=== PATIENT | female | born 1965 | race Caucasian/White ===

== ENCOUNTER 2017-08-11 21:26 | Emergency (ER) | payer MEDICAID ==
[2017-08-11 21:33] VITALS: BP 149/81
[2017-08-11] MEDS ORDERED: BUPIVACAINE HCL 0.5 % INJ/PF 30 ML SDV INJ ONE (22:47)
[2017-08-11] MEDS ORDERED: PENICILLIN V POTASSIUM 500 MG TABLET PO ONE (22:47)
--- NOTE | 2017-08-11 22:50 | ER Document Report ---
HPI - HPI Pain Level: 5 Context: Patient is a 52-year-old female presents emergency department complaining of left upper jaw pain. Patient states that she has a history of dental cavities in this back molar. She states she is due to follow-up with her dentist on . She denies any difficulty swallowing, breathing, foul odor or drainage. Tender to touch. Otherwise denies any allergies. - CARDIOVASCULAR Cardiovascular: DENIES: Chest pain Past Medical History - Social History Smoking Status: Current Every Day Smoker Chew tobacco use (# tins/day): No Frequency of alcohol use: Occasional Drug Abuse: None Family History: Reviewed & Not Pertinent Patient has suicidal ideation: No Patient has homicidal ideation: No - Past Medical History Cardiac Medical History: Denies: Hx Congestive Heart Failure, Hx Coronary Artery Disease Pulmonary Medical History: Reports: Hx Bronchitis Renal/ Medical History: Denies: Hx Peritoneal Dialysis Surgical Hx: Negative Vertical Provider Document - CONSTITUTIONAL Notes: PHYSICAL EXAM GENERAL: Alert, interacts well. ENT: Tenderness over tooth 15 without any evidence of abscess. Gingival inflammation. oral mucosa moist, tongue midline. Uvula midline. Airway patent. No evidence of tonsillar enlargement, peritonsillar abscess, retropharyngeal abscess. NECK: Full range of motion. Supple. Trachea midline. LUNGS: Clear to auscultation bilaterally, no wheezes, rales, or rhonchi. No respiratory distress. HEART: Regular rate and rhythm. No murmurs, gallops, or rubs. NEUROLOGICAL: Alert and oriented x4. Normal speech. PSYCH: Normal affect, normal mood. SKIN: Warm, dry, normal turgor. No rashes or lesions noted. - INFECTION CONTROL TRAVEL OUTSIDE OF THE [place] IN LAST 30 DAYS: No - RESPIRATORY O2 Sat by Pulse Oximetry: 99 Course - Re-evaluation Re-evalutation: 08/11/17 22:48 Presentation is most consistent with likely an infected tooth. Airway is patent. Vitals within normal limits. Patient is able swallow without any difficulty. 5 cc Sensorcaine block performed at the bedside. Complete resolution of symptoms. There is no significant facial swelling. Patient will be started on antibiotics. I've instructed to follow-up with dentistry as earliest ability for definitive management. Return precautions and follow-up recommendations have been discussed at length. - Vital Signs Vital signs: Temp Pulse Resp BP Pulse Ox 97.9 F 75 18 149/81 H 99 08/11/17 21:32 08/11/17 21:32 08/11/17 21:32 08/11/17 21:32 08/11/17 21:32 Procedures - Additional Procedures dental block Additional Procedures: Other - Patient received a 5 cc 0.5% Sensorcaine infra alveolar block of the left upper jaw with complete resolution of her pain and no complications Discharge - Discharge Clinical Impression: Toothache Condition: Good Disposition: HOME, SELF-CARE Instructions: Penicillin V K ([facility]), Toothache ([facility]) Additional Instructions: You have been seen for dental pain. It is very important that you follow-up with a dentist for definitive care. Please return if you develop fever greater than 101, swelling in your face, vomiting, difficulty breathing or swallowing, or any other symptoms that are concerning to you. For pain you should take ibuprofen 600 mg every 6 hours as needed. Prescriptions: Penicillin V Potassium [Penicillin Vk 500 mg Tablet] 500 mg PO TID #21 tablet
== END 2017-08-11 23:03 | disposition home or self-care (01) ==
LOC: ER 21:26
DX: K08.89 Other specified disorders of teeth and supporting structures (principal); K05.10 Chronic gingivitis, plaque induced; F17.200 Nicotine dependence, unspecified, uncomplicated
CPT/HCPCS: 99282; 64400; J3490

== ENCOUNTER 2019-03-31 11:03 | Emergency (ER) | payer SELFPAY ==
[2019-03-31] MEDS ORDERED: ASPIRIN 81 MG TABLET, CHEWABLE PO ONE (11:46)
--- NOTE | 2019-03-31 11:48 | ER Document Report ---
ED Medical Screen (RME) - General Chief Complaint: Chest Pain Stated Complaint: CHEST PAIN Time Seen by Provider: 03/31/19 11:45 Mode of Arrival: Ambulatory Information source: Patient Notes: 53-year-old female presented to ED for complaint of chest pain headache intermittently for a week. She states she got up this morning because she just felt bad and her blood pressure was 193/108 at 1015 this morning. She states she had a pulling feeling in her heart. She states she had a [place] in 2006 when she was living in [place] they just told her it was an infection in the heart muscle. She states she does have a stent in her lower abdomen but she does not know which vessel it is in. She has a history of a . She does smoke a pack a day drinks daily but does not use any recreational drugs. 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 Patient is alert oriented respirations regular nonlabored. I have greeted and performed a rapid initial assessment of this patient. A comprehensive ED assessment and evaluation of the patient, analysis of test results and completion of medical decision making process will be conducted by an additional ED providers. Dictation of this chart was performed using voice recognition software; therefore, there may be some unintended grammatical errors. TRAVEL OUTSIDE OF THE [place] IN LAST 30 DAYS: No - Related Data Allergies/Adverse Reactions: No Known Allergies Allergy (Verified 03/31/19 11:05) Past Medical History - Past Medical History Cardiac Medical History: Denies: Hx Congestive Heart Failure, Hx Coronary Artery Disease Pulmonary Medical History: Reports: Hx Bronchitis Renal/ Medical History: Denies: Hx Peritoneal Dialysis - Immunizations History of Influenza Vaccine for 07/2017 - 12/2017 Season: Refused Physical Exam - Vital signs Vitals: Temp Pulse Resp BP Pulse Ox 98.0 F 81 12 140/78 H 97 03/31/19 11:20 03/31/19 11:20 03/31/19 11:20 03/31/19 11:20 03/31/19 11:20 Course - Vital Signs Vital signs: Temp Pulse Resp BP Pulse Ox 98.0 F 81 12 140/78 H 97 03/31/19 11:20 03/31/19 11:20 03/31/19 11:20 03/31/19 11:20 03/31/19 11:20
[2019-03-31 12:32] LABS: ABSOLUTE BASOPHILS # (AUTO) 0.1 10^3/uL (0.0-0.2); ABSOLUTE EOSINOPHILS # (AUTO) 0.2 10^3/uL (0.0-0.6); ABSOLUTE MONOCYTES (AUTO) 0.7 10^3/uL (0.1-1.4); ABSOLUTE NEUT (AUTO) 6.7 10^3/uL (1.7-8.2); BASOPHILS % (AUTO) 0.5 % (0-2); EOSINOPHILS % (AUTO) 1.5 % (0-6); HEMATOCRIT 49.4 % (36.0-47.0); LYMPHOCYTES % (AUTO) 34.2 % (13-45); MEAN CORPUSCULAR HEMOGLOBIN 31.7 pg (27.0-33.4); MEAN CORPUSCULAR HGB CONC 34.4 g/dL (32.0-36.0); MEAN CORPUSCULAR VOLUME 92 fl (80-97); MONOCYTES % (AUTO) 5.9 % (3-13); PLATELET COUNT 279 10^3/uL (150-450); RED BLOOD COUNT 5.37 10^6/uL (3.72-5.28); RED CELL DISTRIBUTION WIDTH 12.7 % (11.5-14.0); SEGMENTED NEUTROPHILS % (AUTO) 57.9 % (42-78); TOTAL CELLS COUNTED % (AUTO) 100 %; WHITE BLOOD COUNT 11.6 10^3/uL (4.0-10.5)
--- NOTE | 2019-03-31 12:33 | RADIOLOGY REPORT (SQ) ---
EXAM DESCRIPTION: CHEST 2 VIEWS COMPLETED DATE/TIME: 03/31/2019 12:24 pm REASON FOR STUDY: Chest pain elevated blood pressure elevated pulse COMPARISON: 07/19/2016 EXAM PARAMETERS: NUMBER OF VIEWS: two views TECHNIQUE: Digital Frontal and Lateral radiographic views of the chest acquired. RADIATION DOSE: NA LIMITATIONS: none FINDINGS: LUNGS AND PLEURA: No opacities, masses or pneumothorax. No pleural effusion. MEDIASTINUM AND HILAR STRUCTURES: No masses or contour abnormalities. HEART AND VASCULAR STRUCTURES: Heart normal size. No evidence for failure. BONES: No acute findings. HARDWARE: None in the chest. OTHER: No other significant finding. IMPRESSION: NO ACUTE RADIOGRAPHIC FINDING IN THE CHEST. TECHNICAL DOCUMENTATION: JOB ID: [id number] [employer]- All Rights Reserved Reading location - IP/workstation name: [email or web address]
[2019-03-31 12:43] LABS: APPEARANCE,URINE SLIGHTLY-CLOUDY; BILIRUBIN,URINE NEGATIVE (NEGATIVE); COLOR,URINE YELLOW; GLUCOSE, URINE NEGATIVE (NEGATIVE); KETONES,URINE NEGATIVE (NEGATIVE); LEUKOCYTE ESTERASE,URINE NEGATIVE (NEGATIVE); NITRITE,URINE NEGATIVE (NEGATIVE); PROTEIN,URINE NEGATIVE (NEGATIVE); URINE SPECIFIC GRAVITY 1.004; UROBILINOGEN,URINE NEGATIVE mg/dL (<2.0)
--- NOTE | 2019-03-31 12:44 | EKG REPORT ---
SEVERITY:- NORMAL ECG - SINUS RHYTHM : Confirmed by: Ace Mckee MD 31-Mar-2019 12:43:42
[2019-03-31 12:52] LABS: ALANINE AMINOTRANSFERASE 32 U/L (9-52); ALBUMIN 4.8 g/dL (3.5-5.0); ALKALINE PHOSPHATASE 91 U/L (38-126); ANION GAP 9 (5-19); ASPARTATE AMINO TRANSFERASE 23 U/L (14-36); BILIRUBIN,DIRECT 0.1 mg/dL (0.0-0.4); BILIRUBIN,TOTAL 0.3 mg/dL (0.2-1.3); BLOOD UREA NITROGEN 12 mg/dL (7-20); CALCIUM 10.4 mg/dL (8.4-10.2); CARBON DIOXIDE 30 mmol/L (22-30); CHLORIDE 102 mmol/L (98-107); GLUCOSE 84 mg/dL (75-110); LIPASE 76.4 U/L (23-300); POTASSIUM 4.7 mmol/L (3.6-5.0); SODIUM 141.4 mmol/L (137-145); TOTAL PROTEIN 8.1 g/dL (6.3-8.2)
--- NOTE | 2019-03-31 15:45 | ER Document Report ---
ED Cardiac - General Chief Complaint: Chest Pain Stated Complaint: CHEST PAIN Time Seen by Provider: 03/31/19 11:45 Mode of Arrival: Ambulatory Notes: 53-year-old female with hypertension and history of a "mild heart attack" in 2006 presents emergency department with chief complaint of chest pain for 1 week. She is also had a headache intermittently. She is been feeling "off" and decided to take her blood pressure this morning and it was 193/108 at about 10 AM. She decided to come to the emergency department for treatment. Upon arrival here her blood pressure was 140/78. She denies any associated dyspnea, diaphoresis, nausea, numbness or weakness in any of her extremities, recent illness, abdominal pain, vomiting or diarrhea, urinary symptoms. She is a smoker and she has a positive family history with her mother having a triple bypass at the age of 46. TRAVEL OUTSIDE OF THE [place] IN LAST 30 DAYS: No - Related Data Allergies/Adverse Reactions: No Known Allergies Allergy (Verified 03/31/19 11:05) Past Medical History - General Information source: Patient - Social History Smoking Status: Current Every Day Smoker Frequency of alcohol use: Heavy Drug Abuse: None Family History: Reviewed & Not Pertinent Patient has suicidal ideation: No Patient has homicidal ideation: No - Past Medical History Cardiac Medical History: Reports: Hx Heart Attack - 2006 Denies: Hx Congestive Heart Failure, Hx Coronary Artery Disease Pulmonary Medical History: Reports: Hx Bronchitis Renal/ Medical History: Denies: Hx Peritoneal Dialysis Past Surgical History: Reports: Hx Cardiac Surgery - stent placed, Hx Section Review of Systems - Review of Systems Constitutional: See HPI EENT: No symptoms reported Cardiovascular: See HPI Respiratory: See HPI Gastrointestinal: See HPI Genitourinary: See HPI Female Genitourinary: No symptoms reported Musculoskeletal: No symptoms reported Skin: No symptoms reported Hematologic/Lymphatic: No symptoms reported Neurological/Psychological: See HPI Physical Exam - Vital signs Vitals: Temp Pulse Resp BP Pulse Ox 98.0 F 81 12 140/78 H 97 03/31/19 11:20 03/31/19 11:20 03/31/19 11:20 03/31/19 11:20 03/31/19 11:20 - Notes Notes: PHYSICAL EXAMINATION: Reviewed vital signs and charting by RN GENERAL: Alert, interacts well. No acute distress. HEAD: Normocephalic, atraumatic. EYES: Pupils equal and round. Extraocular movements intact. ENT: Oral mucosa moist, tongue midline. NECK: Full range of motion. Trachea midline. LUNGS: Clear to auscultation bilaterally, no wheezes, rales, or rhonchi. No resp iratory distress. HEART: Regular rate and rhythm. No murmur ABDOMEN: soft, non-tender. No distention. Bowel sounds present EXTREMITIES: Moves all 4 extremities spontaneously. No edema, No cyanosis. PSYCH: Normal affect, normal mood. SKIN: Warm, dry, normal turgor. No rashes or lesions noted. Course - Re-evaluation Re-evalutation: 03/31/19 14:54 Well-appearing. Patient does have several risk factors and a strong family history. Initial troponin negative. Heart score 4. EKG showed normal sinus rhythm with a heart rate of 78, no evidence of ischemia or STEMI. 03/31/19 17:00 Second troponin was negative. Presentation of chest pain in an otherwise well appearing patient. Low clinical suspicion for ACS given clinical history, exam, EKG without ST elevations or depressions, and negative initial troponin. HEART score less than or equal to 3. PE also seems unlikely given clinical history, absence of tachycardia or dyspnea. Patient is PERC criteria negative. CXR without evidence of pneumothorax or pneumonia. No widened mediastinum. Aortic dissection also seems unlikely given history, symmetric pulses, CXR, and vitals. Had a long discussion with patient and recommended that she be admitted for observation for follow-up stress testing as she does not have insurance or a primary care doctor. She was adamant that she cannot stay in the hospital with this negative work-up because she has a young son at home and has responsibilities. She says she is going to attempt to get Medicaid and get follow-up testing. I explained to her the 30-day risk for major adverse cardiac events was between 12 and 65% but is otherwise reassuring with this negative cardiac work-up she understands all the risks and is of sound mind. At this time she is stable for discharge. 03/31/19 17:01 - Vital Signs Vital signs: Temp Pulse Resp BP Pulse Ox 98.0 F 81 15 113/79 92 03/31/19 11:20 03/31/19 11:20 03/31/19 16:01 03/31/19 16:01 03/31/19 16:01 - Laboratory Result Diagrams: 03/31/19 12:00 03/31/19 12:00 Laboratory results interpreted by me: 03/31/19 03/31/19 12:00 12:00 WBC 11.6 H RBC 5.37 H Hgb 17.0 H Hct 49.4 H Calcium 10.4 H Discharge - Discharge Clinical Impression: Chest pain Qualifiers: Chest pain type: unspecified Qualified Code(s): R07.9 - Chest pain, unspecified Disposition: HOME, SELF-CARE Additional Instructions: You were seen today for chest pain. The exact cause of your pain is unclear. However, based on your cardiac enzyme testing, chest x-ray, and EKG it does not appear that it is from an immediately life-threatening cause at this time. Although your testing here is normal is critical that you follow-up with your primary care physician for continued evaluation of this chest pain and possible stress testing. I recommended you see your physician within the next 24-48 hours to be evaluated for consideration of a stress test. Please return to emergency department immediately if you have worsening of your chest pain, shortness of breath, vomiting, become unable to exert yourself due to pain or difficulty breathing, you pass out, or have any pain that radiates into your arms, jaw, or back. Please also return if you have any additional symptoms that are concerning to you.
[2019-03-31 17:13] VITALS: BP 129/71
== END 2019-03-31 17:21 | disposition home or self-care (01) ==
LOC: ER 11:03
DX: R07.9 Chest pain, unspecified (principal); R51 Headache; F17.200 Nicotine dependence, unspecified, uncomplicated; I25.2 Old myocardial infarction
CPT/HCPCS: 36415; 71046; 80053; 81001; 82553; 83690; 84484; 85025; 93005; 93010; 99285

== ENCOUNTER 2019-04-12 13:02 | Inpatient (IN) | payer SELFPAY ==
[2019-04-12] MEDS ORDERED: IPRATROPIUM/ALBUTEROL 0.5-2.5 MG/3 ML AMPUL NEB ONE (13:15)
[2019-04-12] MEDS ORDERED: METHYLPREDNISOLONE INJ 125 MG/2 ML SDV IV ONE (13:15)
--- NOTE | 2019-04-12 13:17 | ER Document Report ---
ED Medical Screen (RME) - General Chief Complaint: Breathing Difficulty Stated Complaint: TROUBLE BREATHING Time Seen by Provider: 04/12/19 13:14 Mode of Arrival: Wheelchair Information source: Patient Notes: Pt presents c/o diff breathing for past 2 weeks that worsened yesterday. Patient states that 3 days ago she had a fever but none since then. Patient does have a history of COPD and does continue to smoke over a pack a day. Patient states that she has been seen twice recently for this and just finished a steroid taper pack recently. I have greeted and performed a rapid initial assessment of this patient. A comprehensive ED assessment and evaluation of the patient, analysis of test results and completion of the medical decision making process will be conducted by additional ED providers. TRAVEL OUTSIDE OF THE [place] IN LAST 30 DAYS: No - Related Data Allergies/Adverse Reactions: No Known Allergies Allergy (Verified 04/12/19 13:04) Past Medical History - Past Medical History Cardiac Medical History: Reports: Hx Heart Attack - 2006 Denies: Hx Congestive Heart Failure, Hx Coronary Artery Disease Pulmonary Medical History: Reports: Hx Bronchitis Renal/ Medical History: Denies: Hx Peritoneal Dialysis Past Surgical History: Reports: Hx Cardiac Surgery - stent placed, Hx Section - Immunizations History of Influenza Vaccine for 07/2017 - 12/2017 Season: Refused Physical Exam - Vital signs Vitals: Temp Pulse Resp BP Pulse Ox 99.8 F 84 16 148/75 H 92 04/12/19 13:06 04/12/19 13:06 04/12/19 13:06 04/12/19 13:06 04/12/19 13:06 - Respiratory Chest status: Pain with cough Breath sounds: Nonproductive cough, Wheezing Course - Vital Signs Vital signs: Temp Pulse Resp BP Pulse Ox 99.8 F 84 16 148/75 H 92 04/12/19 13:06 04/12/19 13:06 04/12/19 13:06 04/12/19 13:06 04/12/19 13:06
[2019-04-12] MEDS: ALBUTEROL SULFATE 0.083% NEB 2.5 MG/3 ML AMPUL NEB SCH ×2 (13:25→13:58)
[2019-04-12 13:35] LABS: HEMOGLOBIN 16.2 g/dL (12.0-15.5); MEAN CORPUSCULAR HEMOGLOBIN 31.3 pg (27.0-33.4); MEAN CORPUSCULAR HGB CONC 34.4 g/dL (32.0-36.0); MEAN CORPUSCULAR VOLUME 91 fl (80-97); PLATELET COUNT 242 10^3/uL (150-450); RED BLOOD COUNT 5.17 10^6/uL (3.72-5.28); RED CELL DISTRIBUTION WIDTH 12.7 % (11.5-14.0); WHITE BLOOD COUNT 16.9 10^3/uL (4.0-10.5)
[2019-04-12 13:55] LABS: ALANINE AMINOTRANSFERASE 50 U/L (9-52); ALBUMIN 4.1 g/dL (3.5-5.0); ALKALINE PHOSPHATASE 90 U/L (38-126); ANION GAP 8 (5-19); ASPARTATE AMINO TRANSFERASE 39 U/L (14-36); BILIRUBIN,DIRECT 0.1 mg/dL (0.0-0.4); BILIRUBIN,TOTAL 0.3 mg/dL (0.2-1.3); BLOOD UREA NITROGEN 14 mg/dL (7-20); CALCIUM 9.2 mg/dL (8.4-10.2); CARBON DIOXIDE 28 mmol/L (22-30); CHLORIDE 99 mmol/L (98-107); GLUCOSE 89 mg/dL (75-110); POTASSIUM 4.6 mmol/L (3.6-5.0); SODIUM 135.4 mmol/L (137-145); TOTAL PROTEIN 7.2 g/dL (6.3-8.2)
[2019-04-12 13:58] LABS: ABSOLUTE LYMPHOCYTES# (MANUAL) 4.2 10^3/uL (0.5-4.7); ABSOLUTE MONOCYTES # (MANUAL) 2.4 10^3/uL (0.1-1.4); BASOPHILS % (MANUAL) 0 % (0-2); EOSINOPHILS % (MANUAL) 0 % (0-6); LYMPHOCYTES % (MANUAL) 23 % (13-45); MONOCYTES % (MANUAL) 14 % (3-13); SEGMENTED NEUTROPHILS % (MAN) 61 % (42-78); TOTAL CELLS COUNTED 100
[2019-04-12 13:59] LABS: PLATELET COMMENT ADEQUATE; RBC MORPHOLOGY COMMENT NORMO-CYTIC/CHROMIC
--- NOTE | 2019-04-12 14:00 | RADIOLOGY REPORT (SQ) ---
EXAM DESCRIPTION: CHEST 2 VIEWS COMPLETED DATE/TIME: 04/12/2019 1:50 pm REASON FOR STUDY: sob, cough COMPARISON: 03/31/2019 TECHNIQUE: Frontal and lateral radiographic views of the chest acquired. NUMBER OF VIEWS: Two view. LIMITATIONS: None. FINDINGS: LUNGS AND PLEURA: No pneumothorax. Mildly increased interstitial markings -bronchial wall thickening. No consolidation or pleural effusion. MEDIASTINUM AND HILAR STRUCTURES: Stable. HEART AND VASCULAR STRUCTURES: Stable. BONES: No acute findings. HARDWARE: None in the chest. OTHER: No other significant finding. IMPRESSION: Mildly increased interstitial markings -bronchial wall thickening. No consolidation or pleural effusion. TECHNICAL DOCUMENTATION: JOB ID: [id number] 2010 [employer]- All Rights Reserved Reading location - IP/workstation name: [email or web address]
[2019-04-12 15:16] LABS: ARTERIAL BLOOD BASE EXCESS 2.8 mmol/L; ARTERIAL BLOOD FIO2 2.5L; ARTERIAL BLOOD H2CO3 1.13 mmol/L (1.05-1.35); ARTERIAL BLOOD HCO3 26.4 mmol/L (20-24); ARTERIAL BLOOD O2 SATURATION 97.2 % (94-98); ARTERIAL BLOOD PCO2 37.5 mmHg (35-45); ARTERIAL BLOOD PH 7.47 (7.35-7.45); ARTERIAL BLOOD PO2 87.8 mmHg (80-100); ARTERIAL BLOOD TOTAL CO2 27.5 mmol/L (21-25)
[2019-04-12] MEDS ORDERED: ALBUTEROL SULFATE 0.083% NEB 2.5 MG/3 ML AMPUL NEB ONE (15:21)
--- NOTE | 2019-04-12 15:59 | ER Document Report ---
ED General - General Chief Complaint: Breathing Difficulty Stated Complaint: BREATHING DIFFICULTY Time Seen by Provider: 04/12/19 13:14 Primary Care Provider: [facility] [Provider Group] - Follow up in 3-5 days Mode of Arrival: Wheelchair TRAVEL OUTSIDE OF THE [place] IN LAST 30 DAYS: No - HPI Notes: Patient is a 53-year-old female that presents to the emergency department for chief complaint of cough. Patient states that she has had cough congestion and sore throat for the last 5 days. She was seen at an urgent care at onset of symptoms on Thursday and prescribed prednisone. She states she has completed the prednisone and her cough has gotten worse. She did report fever with a T-max of 101.7 on Thursday. She has not had any antipyretic medication today. She denies productive sputum. She states she did not realize she was short of breath until walking into the emergency room. Patient states her sore throat seems to be improving. She does have a history of COPD and has required breathing treatments in the past. She does not currently have any albuterol at home. She is currently smoking and denies change in her tobacco habit since being sick. Patient also uses vaporized marijuana daily. Past Medical History: COPD Past Surgical History: Reviewed in chart Social History: Daily tobacco. Daily vaporized marijuana, frequent near daily alcohol Family History: Reviewed and noncontributory for presenting illness Allergies: Reviewed, see documented allergy list. REVIEW OF SYSTEMS: CONSTITUTIONAL : fever No chills No diaphoresis No recent illness EENT: No vision changes congestion sore throat CARDIOVASCULAR: No chest pain No palpitations RESPIRATORY: shortness of breath cough No difficulty breathing GASTROINTESTINAL: No abdominal pain No nausea No vomiting No diarrhea GENITOURINARY: No dysuria No hematuria No difficulty urinating MUSCULOSKELETAL: No back pain No leg pain No arm pain SKIN: No rashes No lesions LYMPHATIC: No swollen, enlarged glands. NEUROLOGICAL: No lightheadedness No headache No weakness No paresthesias PSYCHIATRIC: No anxiety No depression PHYSICAL EXAMINATION: Vital signs reviewed, nursing noted reviewed. GENERAL: Well-appearing, well-nourished and in no acute distress. HEAD: Atraumatic, normocephalic. EYES: Eyes appear normal, extraocular movements intact, sclera anicteric, conjunctiva are normal. ENT: nares patent, oropharynx clear without exudates. Moist mucous membranes. NECK: Normal range of motion, supple without lymphadenopathy LUNGS: Breath sounds diminished with bilateral end expiratory wheezing to ausc ultation bilaterally and equal. No accessory muscle use. Mild tachypnea HEART: Regular rate and rhythm without murmurs ABDOMEN: Soft, nontender, normoactive bowel sounds. No rebound, guarding, or rigidity. No masses appreciated. EXTREMITIES: Nontender, good range of motion, no pitting or edema. NEUROLOGICAL: No focal neurological deficits. Moves all extremities spontaneously Motor and sensory grossly intact on exam. PSYCH: Normal mood, normal affect. SKIN: Warm, Dry, normal turgor, no rashes or lesions noted on exposed skin - Related Data Allergies/Adverse Reactions: No Known Allergies Allergy (Verified 04/12/19 13:04) Past Medical History - General Information source: Patient - Social History Smoking Status: Current Every Day Smoker Chew tobacco use (# tins/day): No Frequency of alcohol use: Heavy Drug Abuse: Marijuana Family History: Reviewed & Not Pertinent Patient has suicidal ideation: No Patient has homicidal ideation: No - Past Medical History Cardiac Medical History: Reports: Hx Heart Attack - 2006, Hx Hypertension Denies: Hx Congestive Heart Failure, Hx Coronary Artery Disease Pulmonary Medical History: Reports: Hx Bronchitis, Hx COPD Renal/ Medical History: Denies: Hx Peritoneal Dialysis Past Surgical History: Reports: Hx Cardiac Surgery - stent placed, Hx Section Physical Exam - Vital signs Vitals: Temp Pulse Resp BP Pulse Ox 99.8 F 84 16 148/75 H 92 04/12/19 13:06 04/12/19 13:06 04/12/19 13:06 04/12/19 13:06 04/12/19 13:06 Course - Re-evaluation Re-evalutation: 04/12/19 15:57 Vitals reviewed. Nursing notes reviewed. Patient does have a leukocytosis but has been on high-dose steroids for the last few days. Her x-ray shows no focal pneumonia. She does have interstitial lung markings likely suggestive of a viral process and acute bronchitis. Patient does have wheezing and feels much better after receiving DuoNeb and albuterol. Her O2 was borderline at 92% on room air when she presented to today. Her ABG shows no hypercapnic respiratory failure or hypoxemia. Patient will be ambulated in the emergency room on room air. If she is able to maintain her oxygen saturation she will be discharged home with a prolonged dose of steroids and albuterol inhaler. Chest X-Ray 04/12/19 13:15 IMPRESSION: Mildly increased interstitial markings -bronchial wall thickening. No consolidation or pleural effusion. Laboratory 04/12/19 04/12/19 04/12/19 13:21 13:21 13:21 WBC 16.9 H RBC 5.17 Hgb 16.2 H Hct 47.0 MCV 91 MCH 31.3 MCHC 34.4 RDW 12.7 Plt Count 242 Total Counted 100 Seg Neutrophils % Not Reportable Seg Neuts % (Manual) 61 Lymphocytes % Not Reportable Lymphocytes % (Manual) 23 Atypical Lymphs % 2 Monocytes % Not Reportable Monocytes % (Manual) 14 H Eosinophils % Not Reportable Eosinophils % (Manual) 0 Basophils % Not Reportable Basophils % (Manual) 0 Absolute Neutrophils Not Reportable Abs Neuts (Manual) 10.3 H Absolute Lymphocytes Not Reportable Abs Lymphs (Manual) 4.2 Absolute Monocytes Not Reportable Abs Monocytes (Manual) 2.4 H Absolute Eosinophils Not Reportable Absolute Eos (Manual) 0.0 Absolute Basophils Not Reportable Abs Basophils (Manual) 0.0 Platelet Comment ADEQUATE RBC Morph Comment NORMO-CYTIC/CHROMIC Carbonic Acid HCO3/H2CO3 Ratio ABG pH ABG pCO2 ABG pO2 ABG HCO3 ABG Total CO2 ABG O2 Saturation ABG Base Excess FiO2 Sodium 135.4 L Potassium 4.6 Chloride 99 Carbon Dioxide 28 Anion Gap 8 BUN 14 Creatinine 0.65 Est GFR ( Amer) > 60 Est GFR (Non-Af Amer) > 60 Glucose 89 Calcium 9.2 Total Bilirubin 0.3 Direct Bilirubin 0.1 Neonat Total Bilirubin Not Reportable Neonat Direct Bilirubin Not Reportable Neonat Indirect Bili Not Reportable AST 39 H ALT 50 Alkaline Phosphatase 90 Troponin I < 0.012 Total Protein 7.2 Albumin 4.1 04/12/19 15:00 WBC RBC Hgb Hct MCV MCH MCHC RDW Plt Count Total Counted Seg Neutrophils % Seg Neuts % (Manual) Lymphocytes % Lymphocytes % (Manual) Atypical Lymphs % Monocytes % Monocytes % (Manual) Eosinophils % Eosinophils % (Manual) Basophils % Basophils % (Manual) Absolute Neutrophils Abs Neuts (Manual) Absolute Lymphocytes Abs Lymphs (Manual) Absolute Monocytes Abs Monocytes (Manual) Absolute Eosinophils Absolute Eos (Manual) Absolute Basophils Abs Basophils (Manual) Platelet Comment RBC Morph Comment Carbonic Acid 1.13 HCO3/H2CO3 Ratio 23:1 ABG pH 7.47 H ABG pCO2 37.5 ABG pO2 87.8 ABG HCO3 26.4 H ABG Total CO2 27.5 H ABG O2 Saturation 97.2 ABG Base Excess 2.8 FiO2 2.5L Sodium Potassium Chloride Carbon Dioxide Anion Gap BUN Creatinine Est GFR ( Amer) Est GFR (Non-Af Amer) Glucose Calcium Total Bilirubin Direct Bilirubin Neonat Total Bilirubin Neonat Direct Bilirubin Neonat Indirect Bili AST ALT Alkaline Phosphatase Troponin I Total Protein Albumin 04/12/19 16:40 Patient did not do well with ambulation in the emergency room. Her O2 went to 86% on room air and she became conversationally dyspneic. When she sat back in bed she stayed around 90% and was placed back on 2 L nasal cannula oxygen. At this point she is requiring oxygen and does not have O2 at home. Patient will be admitted to the hospital for continued treatment of her bronchitis and hypoxia. Care discussed with Dr. Romo who accepts admission - Vital Signs Vital signs: Temp Pulse Resp BP Pulse Ox 99.1 F 84 13 142/66 H 97 04/12/19 16:16 04/12/19 13:06 04/12/19 14:47 04/12/19 14:48 04/12/19 14:48 - Laboratory Result Diagrams: 04/12/19 13:21 04/12/19 13:21 Laboratory results interpreted by me: 04/12/19 04/12/19 04/12/19 13:21 13:21 15:00 WBC 16.9 H Hgb 16.2 H Monocytes % (Manual) 14 H Abs Neuts (Manual) 10.3 H Abs Monocytes (Manual) 2.4 H ABG pH 7.47 H ABG HCO3 26.4 H ABG Total CO2 27.5 H Sodium 135.4 L AST 39 H - EKG Interpretation by Me Additional EKG results interpreted by me: 04/12/19 16:03 Interpreted by myself 1451: Normal sinus rhythm, rate 75, normal axis, no ectopy, no STEMI Discharge - Discharge Clinical Impression: Bronchitis, Wheezing, Hypoxia Condition: Stable Disposition: ADMITTED INPATIENT Admitting Provider: Demetrius (Hospitalist) Unit Admitted: Telemetry Additional Instructions: Please return to the emergency department if you have any worsening, or concern of your symptoms. Please return to the emergency department if you develop chest pain, difficulty breathing, severe abdominal pain, or ongoing vomiting. Please follow-up with your primary care physician in 2-3 days and any other recommended physicians. If prescribed, take all medications as directed. If you have any questions or concerns do not hesitate to return the emergency department for evaluation. Use the albuterol inhaler 2 puffs every 4 hours as needed for cough and wheezing Stop using vaporized marijuana and tobacco Prescriptions: Albuterol Sulfate [Proair HFA Inhalation Aerosol 8.5 gm MDI] 2 puff IH Q4H PRN #1 mdi PRN Reason: Inhaler, Assist Devices [Space Chamber Plus] 1 each MC Q4 #1 spacer Methylprednisolone [Medrol Dosepack (4 mg/Tab) 21 Tab/Dosepak] 4 mg PO ASDIR PRN #21 tab.ds.pk PRN Reason:
[2019-04-12] MEDS ORDERED: LEVALBUTEROL HCL NEB 0.63 MG/3 ML AMPUL NEB PRN (17:30)
[2019-04-12] MEDS ORDERED: ACETAMINOPHEN 650 MG SUPP.RECT PR PRN (17:30)
[2019-04-12] MEDS ORDERED: ONDANSETRON HCL INJ/PF 4 MG/2 ML SDV IV PRN (17:30)
--- NOTE | 2019-04-12 18:11 | PDOC H&P ---
History of Present Illness Admission Date/PCP: 04/12/19 16:45 Patient complains of: shortness of breath for 2 weeks History of Present Illness: SAM SANCHEZ is a 53 year old female asthma,copd,htn came to the er with c/o not feeling well for 2 weeks. from this morning started having chest pains,cough with yellowish sputum associated with fever,chills,nausea and decided to come to ER in the ER pulse ox is 80 percent and cxr neg for pneumonia and medical consult was called for admission Past Medical History Cardiac Medical History: Reports: Myocardial Infarction - 2006, Hypertension Denies: Congestive Heart Failure, Coronary Artery Disease Pulmonary Medical History: Reports: Bronchitis, Chronic Obstructive Pulmonary Disease (COPD) Past Surgical History Past Surgical History: Reports: Section Social History Smoking Status: Current Every Day Smoker Frequency of Alcohol Use: Heavy Hx Recreational Drug Use: No Hx Prescription Drug Abuse: No - Advance Directive Resuscitation Status: Full Code Family History Family History: Reviewed & Not Pertinent Parental Family History Reviewed: Yes - mother with heart attack and f ather copd Children Family History Reviewed: Yes Sibling(s) Family History Reviewed.: Yes Medication/Allergy Home Medications: Albuterol Sulfate [Ventolin Hfa] 18 gm IH Q4HP PRN #1 hfa.aer.ad 07/19/16 Penicillin V Potassium [Penicillin Vk 500 mg Tablet] 500 mg PO TID #21 tablet 08/11/17 Albuterol Sulfate [Proair HFA Inhalation Aerosol 8.5 gm MDI] 2 puff IH Q4H PRN #1 mdi 04/12/19 Inhaler, Assist Devices [Space Chamber Plus] 1 each MC Q4 #1 spacer 04/12/19 Methylprednisolone [Medrol Dosepack (4 mg/Tab) 21 Tab/Dosepak] 4 mg PO ASDIR PRN #21 tab.ds.pk 04/12/19 Allergies/Adverse Reactions: No Known Allergies Allergy (Verified 04/12/19 13:04) Review of Systems Constitutional: PRESENT: chills, fatigue, fever(s), headache(s), weakness Eyes: ABSENT: visual disturbances Ears: ABSENT: hearing changes Nose, Mouth, and Throat: ABSENT: sore throat Respiratory: PRESENT: cough, dyspnea Gastrointestinal: PRESENT: nausea Integumentary: ABSENT: rash, wounds Neurological: ABSENT: abnormal gait, abnormal speech, confusion, dizziness, focal weakness, syncope Psychiatric: ABSENT: anxiety, depression, homidical ideation, suicidal ideation Physical Exam Vital Signs: Temp Pulse Resp BP Pulse Ox 99.1 F 84 13 142/66 H 97 04/12/19 16:16 04/12/19 13:06 04/12/19 14:47 04/12/19 14:48 04/12/19 14:48 Intake & Output 04/11/19 04/12/19 04/13/19 06:59 06:59 06:59 Weight 72.5 kg General appearance: PRESENT: mild distress, well-developed Head exam: PRESENT: atraumatic Eye exam: PRESENT: PERRLA Ear exam: PRESENT: normal external ear exam Mouth exam: PRESENT: moist, tongue midline Neck exam: ABSENT: carotid bruit, JVD, lymphadenopathy, thyromegaly Respiratory exam: PRESENT: decreased breath sounds Cardiovascular exam: PRESENT: tachycardia GI/Abdominal exam: PRESENT: normal bowel sounds, soft. ABSENT: distended, guarding, mass, organolmegaly, rebound, tenderness Rectal exam: PRESENT: deferred Neurological exam: PRESENT: alert, awake, oriented to person, oriented to place, oriented to time, oriented to situation, CN II-XII grossly intact. ABSENT: m otor sensory deficit Psychiatric exam: PRESENT: appropriate affect, normal mood. ABSENT: homicidal ideation, suicidal ideation Results Laboratory Results: 04/12/19 13:21 04/12/19 13:21 04/12/19 04/12/19 04/12/19 13:21 13:21 15:00 WBC 16.9 H RBC 5.17 Hgb 16.2 H Hct 47.0 MCV 91 MCH 31.3 MCHC 34.4 RDW 12.7 Plt Count 242 Seg Neutrophils % Not Reportable Lymphocytes % Not Reportable Monocytes % Not Reportable Eosinophils % Not Reportable Basophils % Not Reportable Absolute Neutrophils Not Reportable Absolute Lymphocytes Not Reportable Absolute Monocytes Not Reportable Absolute Eosinophils Not Reportable Absolute Basophils Not Reportable Carbonic Acid 1.13 HCO3/H2CO3 Ratio 23:1 ABG pH 7.47 H ABG pCO2 37.5 ABG pO2 87.8 ABG HCO3 26.4 H ABG O2 Saturation 97.2 ABG Base Excess 2.8 FiO2 2.5L Sodium 135.4 L Potassium 4.6 Chloride 99 Carbon Dioxide 28 Anion Gap 8 BUN 14 Creatinine 0.65 Est GFR ( Amer) > 60 Est GFR (Non-Af Amer) > 60 Glucose 89 Calcium 9.2 Total Bilirubin 0.3 AST 39 H ALT 50 Alkaline Phosphatase 90 Total Protein 7.2 Albumin 4.1 04/12/19 13:21 Troponin I < 0.012 Impressions: Chest X-Ray 04/12/19 13:15 IMPRESSION: Mildly increased interstitial markings -bronchial wall thickening. No consolidation or pleural effusion. Assessment and Plan - Diagnosis (1) Hypoxia Is this a current diagnosis for this admission?: Yes Plan: 04/12/2019-pt is going to be admitted in [facility]-to start on azithromycin and rocephin,oxygen 2lts via nasal canula,gi and DVT prophylaxis. order placed for CTA of the chest.blood cultures and sputum cultures requested.hypoxia most likely sec to asthma exacerbation. (2) Asthma exacerbation Is this a current diagnosis for this admission?: Yes Plan: 04/12/2019-pt has h/o asthma exacerbation... started on iv solumedrol 40 mg q 12hrs, oxygen 2lts ia nasal canula.started on xopenex neds q6h/prn (3) Bronchitis Is this a current diagnosis for this admission?: Yes Plan: started on azthromycin and rocephin , sputum and blood cultures are requested (4) Tobacco abuse Is this a current diagnosis for this admission?: No Plan: pt has h/o current day smoking.. smoking counselling provided for more than 10 min. order was placed for nicotine patch (5) HTN (hypertension) Is this a current diagnosis for this admission?: No Plan: 04/12/2019-h/o essential hypertension-bp know is 131/71 stable. plan to check BP q shift. - Time Time Spent with patient: 25-34 minutes Smoking Cessation Education: over 10 minutes Medications reviewed and adjusted accordingly: Yes Anticipated discharge: Home
--- NOTE | 2019-04-12 18:55 | RADIOLOGY REPORT (SQ) ---
EXAM DESCRIPTION: CTA CHEST COMPLETED DATE/TIME: 04/12/2019 6:27 pm REASON FOR STUDY: pulm embolism COMPARISON: None. TECHNIQUE: CT scan of the chest performed using helical scanning technique with dynamic intravenous contrast injection. Images reviewed with lung, soft tissue and bone windows. Reconstructed coronal and sagittal MPR images reviewed. Additional 3 dimensional post-processing performed to develop Maximal Intensity Projection images (OR P). All images stored on PACS. All CT scanners at this facility use dose modulation, iterative reconstruction, and/or weight based d osing when appropriate to reduce radiation dose to as low as reasonably achievable (ALARA). [facility]: Dose Right [facility]: CareDose [facility]: Dose Right [facility]: Teradose 4D [facility]: SleepOut CONTRAST TYPE AND DOSE: contrast/concentration: Isovue 350.00 mg/ml; Total Contrast Delivered: 70.0 ml; Total Saline Delivered: 80.0 ml Contrast bolus adequate for pulmonary arteries and aorta. RENAL FUNCTION: BUN 14 creatinine 0.65 RADIATION DOSE: CT Rad equipment meets quality standard of care and radiation dose reduction techniq ues were employed. CTDIvol: 14.4 - 33.1 mGy. DLP: 578 mGy-cm. . LIMITATIONS: None. FINDINGS: LUNGS AND PLEURA: Mild centrilobular emphysematous changes. No focal infiltrate or effusi on. No mass. AORTA AND GREAT VESSELS: No aneurysm. Contrast bolus not optimized for the aorta. HEART: No pericardial effusion. No significant coronary artery calcifications. PULMONARY ARTERIES: No emboli visualized in the main pulmonary arteries or the segmental branches. HILAR AND MEDIASTINAL STRUCTURES: No identified masses or abnormal nodes. HARDWARE: None in the chest. UPPER ABDOMEN: No significant findings. Limited exam. THYROID AND OTHER SOFT TISSUES: No masses. No adenopathy. BONES: No acute or significant finding. 3D MIPS: Confirm above findings. OTHER: No other significant finding. IMPRESSION: There is no evidence of pulmonary emboli. There is no aortic aneurysm or dissection. T here is mild centrilobular pulmonary emphysema. COMMENT: Quality ID # [id number]: Final reports with documentation of one or more dose reduction techniques (e.g., Automated exposure control, adjustment of the mA and/or kV according to patient size, use of iterative reconstruction technique) TECHNICAL DOCUMENTATION: JOB ID: [id number]- All Rights Reserved Reading location - IP/workstation name: [email or web address]
[2019-04-12] MEDS: NICOTINE 21 MG/24 HR PATCH.TD24 TD SCH (18:57)
[2019-04-12] MEDS: LISINOPRIL 10 MG TABLET PO SCH (18:58)
[2019-04-12] MEDS: NORMAL SALINE 1000 ML 1,000 ML IV PRN (19:09)
[2019-04-12 20:19] LABS: CREATINE KINASE MB 0.54 ng/mL (<4.55)
[2019-04-12 20:20] LABS: TROPONIN I < 0.012 ng/mL
--- NOTE | 2019-04-12 20:28 | EKG REPORT ---
SEVERITY:- NORMAL ECG - SINUS RHYTHM : Confirmed by: Bret Ledesma 12-Apr-2019 20:27:07
[2019-04-12] MEDS: FAMOTIDINE 20 MG TABLET PO SCH (21:11)
[2019-04-12] MEDS: METHYLPREDNISOLONE INJ 40 MG/1 ML SDV IV SCH (21:11)
[2019-04-13 02:13] LABS: CREATINE KINASE MB 1.05 ng/mL (<4.55)
[2019-04-13 02:17] LABS: TROPONIN I < 0.012 ng/mL
[2019-04-13] MEDS ORDERED: PANTOPRAZOLE SODIUM 40 MG TABLET.DR PO SCH (06:00)
[2019-04-13] MEDS: GUAIFENESIN SYRP 200 MG/10 ML UDC PO PRN (06:42)
[2019-04-13 08:14] LABS: ABSOLUTE LYMPHOCYTES (AUTO) 3.4 10^3/uL (0.5-4.7); ABSOLUTE MONOCYTES (AUTO) 1.3 10^3/uL (0.1-1.4); ABSOLUTE NEUT (AUTO) 10.3 10^3/uL (1.7-8.2); BASOPHILS % (AUTO) 0.1 % (0-2); HEMATOCRIT 42.6 % (36.0-47.0); HEMOGLOBIN 14.7 g/dL (12.0-15.5); LYMPHOCYTES % (AUTO) 22.4 % (13-45); MEAN CORPUSCULAR HEMOGLOBIN 31.7 pg (27.0-33.4); MEAN CORPUSCULAR HGB CONC 34.5 g/dL (32.0-36.0); MEAN CORPUSCULAR VOLUME 92 fl (80-97); MONOCYTES % (AUTO) 8.8 % (3-13); PLATELET COUNT 225 10^3/uL (150-450); RED BLOOD COUNT 4.65 10^6/uL (3.72-5.28); RED CELL DISTRIBUTION WIDTH 12.4 % (11.5-14.0); SEGMENTED NEUTROPHILS % (AUTO) 68.7 % (42-78); TOTAL CELLS COUNTED % (AUTO) 100 %
[2019-04-13] MEDS: IPRATROPIUM/ALBUTEROL 0.5-2.5 MG/3 ML AMPUL NEB PRN (08:20)
[2019-04-13 08:33] LABS: ALANINE AMINOTRANSFERASE 47 U/L (9-52); ALBUMIN 3.7 g/dL (3.5-5.0); ALKALINE PHOSPHATASE 73 U/L (38-126); ANION GAP 9 (5-19); ASPARTATE AMINO TRANSFERASE 36 U/L (14-36); BILIRUBIN,DIRECT 0.2 mg/dL (0.0-0.4); BILIRUBIN,TOTAL 0.3 mg/dL (0.2-1.3); BLOOD UREA NITROGEN 13 mg/dL (7-20); CALCIUM 8.9 mg/dL (8.4-10.2); CARBON DIOXIDE 26 mmol/L (22-30); CHLORIDE 104 mmol/L (98-107); CREATINE KINASE 601 U/L (30-135); GLUCOSE 92 mg/dL (75-110); POTASSIUM 4.7 mmol/L (3.6-5.0); SODIUM 138.8 mmol/L (137-145); TOTAL PROTEIN 6.5 g/dL (6.3-8.2); TRIGLYCERIDES 107 mg/dL (<150)
[2019-04-13 08:46] LABS: DIRECT LDL 126 mg/dL (<100)
[2019-04-13 08:51] LABS: CREATINE KINASE MB 1.82 ng/mL (<4.55)
[2019-04-13 08:55] LABS: TROPONIN I < 0.012 ng/mL
[2019-04-13] MEDS: NICOTINE 21 MG/24 HR PATCH.TD24 TD SCH (09:16)
[2019-04-13] MEDS: ENOXAPARIN SODIUM INJ 40 MG/0.4 ML DISP.SYRIN SUBCUT SCH (09:16)
[2019-04-13] MEDS: FAMOTIDINE 20 MG TABLET PO SCH ×2 (09:16→21:50)
[2019-04-13] MEDS: CEFTRIAXONE 2 GM/D5W RTU 2 GM/50 ML RTUPB IV SCH (09:16)
[2019-04-13] MEDS: LISINOPRIL 10 MG TABLET PO SCH (09:16)
[2019-04-13] MEDS: METHYLPREDNISOLONE INJ 40 MG/1 ML SDV IV SCH ×2 (09:17→21:50)
[2019-04-13] MEDS: ACETAMINOPHEN 325 MG TABLET PO PRN ×2 (09:55→17:57)
[2019-04-13] MEDS: NORMAL SALINE 1000 ML 1,000 ML IV PRN ×2 (09:56→23:45)
[2019-04-13] MEDS ORDERED: (PENDING PHARMACY ID) (Cyanocobalamin (Vitamin B-12) [Vitamin B12] 2,500 MCG) PO SCH (10:00)
[2019-04-13] MEDS ORDERED: AZITHROMYCIN INJ 500 MG VIAL IV SCH (10:00)
[2019-04-13] MEDS ORDERED: (PENDING PHARMACY ID) (Omega-3 Fatty Acids/Fish Oil [Fish Oil 1,000 Mg Capsule] 1 EACH) PO SCH (10:00)
--- NOTE | 2019-04-13 10:03 | PDOC PROGRESS REPORT ---
Subjective Progress Note for:: 04/13/19 Subjective:: 53 year old female asthma,copd,htn came to the er with c/o not feeling well for 2 weeks. from this morning started having chest pains,cough with yellowish sputum assoc iated with fever,chills,nausea and decided to come to ER in the ER pulse ox is 80 percent and cxr neg for pneumonia and medical consult was called for admission 04/13/[id number]-rqrh-old female came with asthma exacerbation associated with bronchitis became hypoxic in the emergency room. No acute events in the last 24 hours. Still complaining of cough and congestion. Requesting Mucomyst. Pulse ox is 95% on 2 L. Reason For Visit: ASTHMA EXACERBATION Physical Exam Vital Signs: Temp Pulse Resp BP Pulse Ox 98.0 F 64 18 147/67 H 95 04/13/19 08:01 04/13/19 08:22 04/13/19 08:22 04/13/19 08:01 04/13/19 08:22 Intake & Output 04/12/19 04/13/19 04/14/19 06:59 06:59 06:59 Intake Total 750 1050 Balance 750 1050 Weight 69.6 kg General appearance: PRESENT: no acute distress Head exam: PRESENT: atraumatic Eye exam: PRESENT: PERRLA Mouth exam: PRESENT: moist, tongue midline Neck exam: ABSENT: carotid bruit, JVD, lymphadenopathy, thyromegaly Respiratory exam: PRESENT: decreased breath sounds Cardiovascular exam: PRESENT: RRR. ABSENT: diastolic murmur, rubs, systolic murmur GI/Abdominal exam: PRESENT: normal bowel sounds, soft. ABSENT: distended, guarding, mass, organolmegaly, rebound, tenderness Rectal exam: PRESENT: deferred Extremities exam: PRESENT: full ROM. ABSENT: calf tenderness, clubbing, pedal e alberto Neurological exam: PRESENT: alert, awake, oriented to person, oriented to place, oriented to time, oriented to situation, CN II-XII grossly intact. ABSENT: motor sensory deficit Psychiatric exam: PRESENT: appropriate affect, normal mood. ABSENT: homicidal ideation, suicidal ideation Results Laboratory Results: 04/13/19 07:39 04/13/19 07:39 04/12/19 04/12/19 04/12/19 13:21 13:21 15:00 WBC 16.9 H RBC 5.17 Hgb 16.2 H Hct 47.0 MCV 91 MCH 31.3 MCHC 34.4 RDW 12.7 Plt Count 242 Seg Neutrophils % Not Reportable Lymphocytes % Not Reportable Monocytes % Not Reportable Eosinophils % Not Reportable Basophils % Not Reportable Absolute Neutrophils Not Reportable Absolute Lymphocytes Not Reportable Absolute Monocytes Not Reportable Absolute Eosinophils Not Reportable Absolute Basophils Not Reportable Carbonic Acid 1.13 HCO3/H2CO3 Ratio 23:1 ABG pH 7.47 H ABG pCO2 37.5 ABG pO2 87.8 ABG HCO3 26.4 H ABG O2 Saturation 97.2 ABG Base Excess 2.8 FiO2 2.5L Sodium 135.4 L Potassium 4.6 Chloride 99 Carbon Dioxide 28 Anion Gap 8 BUN 14 Creatinine 0.65 Est GFR ( Amer) > 60 Est GFR (Non-Af Amer) > 60 Glucose 89 Calcium 9.2 Magnesium Total Bilirubin 0.3 AST 39 H ALT 50 Alkaline Phosphatase 90 Total Protein 7.2 Albumin 4.1 Triglycerides Cholesterol LDL Cholesterol Direct VLDL Cholesterol HDL Cholesterol TSH 04/13/19 04/13/19 04/13/19 07:39 07:39 07:39 WBC 15.0 H RBC 4.65 Hgb 14.7 Hct 42.6 MCV 92 MCH 31.7 MCHC 34.5 RDW 12.4 Plt Count 225 Seg Neutrophils % 68.7 Lymphocytes % 22.4 Monocytes % 8.8 Eosinophils % 0.0 Basophils % 0.1 Absolute Neutrophils 10.3 H Absolute Lymphocytes 3.4 Absolute Monocytes 1.3 Absolute Eosinophils 0.0 Absolute Basophils 0.0 Carbonic Acid HCO3/H2CO3 Ratio ABG pH ABG pCO2 ABG pO2 ABG HCO3 ABG O2 Saturation ABG Base Excess FiO2 Sodium 138.8 Potassium 4.7 Chloride 104 Carbon Dioxide 26 Anion Gap 9 BUN 13 Creatinine 0.54 Est GFR ( Amer) > 60 Est GFR (Non-Af Amer) > 60 Glucose 92 Calcium 8.9 Magnesium 2.3 Total Bilirubin 0.3 AST 36 ALT 47 Alkaline Phosphatase 73 Total Protein 6.5 Albumin 3.7 Triglycerides 107 Cholesterol 193.90 LDL Cholesterol Direct 126 H VLDL Cholesterol 21.0 HDL Cholesterol 39 L TSH 0.50 04/12/19 04/12/19 04/12/19 13:21 19:25 19:25 Creatine Kinase 300 H CK-MB (CK-2) 0.54 Troponin I < 0.012 < 0.012 04/13/19 04/13/19 04/13/19 01:18 01:18 07:39 Creatine Kinase 372 H 601 H CK-MB (CK-2) 1.05 Troponin I < 0.012 04/13/19 07:39 Creatine Kinase CK-MB (CK-2) 1.82 Troponin I < 0.012 Impressions: Chest/Abdomen CTA 04/12/19 00:00 IMPRESSION: There is no evidence of pulmonary emboli. There is no aortic aneurysm or dissection. There is mild centrilobular pulmonary emphysema. Chest X-Ray 04/12/19 13:15 IMPRESSION: Mildly increased interstitial markings -bronchial wall thickening. No consolidation or pleural effusion. Assessment and Plan - Diagnosis (1) Hypoxia Is this a current diagnosis for this admission?: Yes Plan: 04/12/2019-pt is going to be admitted in [facility]-to start on azithromycin and rocephin,oxygen 2lts via nasal canula,gi and DVT prophylaxis. order placed for CTA of the chest.blood cultures and sputum cultures requested.hypoxia most likely sec to asthma exacerbation. 04/13/[id number]-znbv-old female with history of asthma/COPD came in with shortness of breath found to have a pulse ox of 80 in the emergency room. She is on D uoNeb nebulizations and receiving IV antibiotics therapy. Pulse ox this morning is 95% on 2 L. Hypoxia due to asthma exacerbation resolving. (2) Asthma exacerbation Is this a current diagnosis for this admission?: Yes Plan: 04/12/2019-pt has h/o asthma exacerbation... started on iv solumedrol 40 mg q 12hrs, oxygen 2lts ia nasal canula.started on xopenex neds q6h/prn 04/13/2019-patient has history of asthma admitted with asthma exacerbation presently on IV Solu-Medrol 40 mg every 12 hours on oxygen 2 L via nasal cannula and getting Xopenex nebulizations every 6 as needed. To start her on Mucomyst and continue the other medications. (3) Bronchitis Is this a current diagnosis for this admission?: Yes Plan: started on azthromycin and rocephin , sputum and blood cultures are requested 04/13/2019-patient came in with symptoms of bronchitis started on IV antibiotic therapy blood cultures are pending. Plan is to continue the present management. CT chest was done yesterday found to have no pneumonia but emphysema is noticed. (4) Tobacco abuse Is this a current diagnosis for this admission?: No Plan: pt has h/o current day smoking.. smoking counselling provided for more than 10 m in. order was placed for nicotine patch 04/13/2019-patient has history of daily smoking is smoking history of more than 30 years. Again smoking counseling was provided this morning for more than 10 m inutes presently on nicotine patch. (5) HTN (hypertension) Is this a current diagnosis for this admission?: No Plan: 04/12/2019-h/o essential hypertension-bp know is 131/71 stable. plan to check BP q shift. 04/13/2019-patient has history of hypertension taking lisinopril 10 mg p.o. daily at home today's blood pressure is 147/67. Plan is to continue to closely monitor the blood pressures on daily basis. (6) Elevated CPK Is this a current diagnosis for this admission?: Yes Plan: 04/13/2019-patient CPK level is 601 today was sent from 372 yesterday. Patient i s presently on IV fluids normal saline at 75 cc/h. Elevated CPK levels may be secondary to asthma exacerbation associated with bronchitis causing severe cough episodes. - Time Time Spent with patient: 25-34 minutes Smoking Cessation Education: over 10 minutes Medications reviewed and adjusted accordingly: Yes Anticipated discharge: Home
[2019-04-13] MEDS: OMEGA-3 ACID ETHYL ESTERS 1 GM CAPSULE PO SCH (10:12)
[2019-04-13] MEDS: MULTIVITAMIN TABLET PO SCH (10:12)
[2019-04-13] MEDS: ASPIRIN 81 MG TABLET, ENT COATED PO SCH (10:43)
[2019-04-13] MEDS: CYANOCOBALAMIN (VITAMIN B-12) 1,000 MCG TABLET PO SCH (11:07)
[2019-04-13] MEDS: ACETYLCYSTEINE 10% NEB 400 MG/4 ML VIAL NEB SCH ×2 (13:42→20:31)
[2019-04-14] MEDS: ACETYLCYSTEINE 10% NEB 400 MG/4 ML VIAL NEB SCH ×3 (02:18→13:15)
[2019-04-14] MEDS: GUAIFENESIN SYRP 200 MG/10 ML UDC PO PRN (07:35)
[2019-04-14] MEDS: ACETAMINOPHEN 325 MG TABLET PO PRN (07:36)
[2019-04-14 08:12] LABS: ABSOLUTE BASOPHILS # (AUTO) 0.1 10^3/uL (0.0-0.2); ABSOLUTE LYMPHOCYTES (AUTO) 3.9 10^3/uL (0.5-4.7); ABSOLUTE NEUT (AUTO) 10.7 10^3/uL (1.7-8.2); BASOPHILS % (AUTO) 0.6 % (0-2); HEMATOCRIT 44.3 % (36.0-47.0); MEAN CORPUSCULAR HEMOGLOBIN 31.1 pg (27.0-33.4); MEAN CORPUSCULAR HGB CONC 33.9 g/dL (32.0-36.0); MEAN CORPUSCULAR VOLUME 92 fl (80-97); MONOCYTES % (AUTO) 6.2 % (3-13); PLATELET COUNT 238 10^3/uL (150-450); RED BLOOD COUNT 4.82 10^6/uL (3.72-5.28); RED CELL DISTRIBUTION WIDTH 12.6 % (11.5-14.0); SEGMENTED NEUTROPHILS % (AUTO) 68.2 % (42-78); TOTAL CELLS COUNTED % (AUTO) 100 %; WHITE BLOOD COUNT 15.6 10^3/uL (4.0-10.5)
[2019-04-14] MEDS: IPRATROPIUM/ALBUTEROL 0.5-2.5 MG/3 ML AMPUL NEB PRN (08:22)
[2019-04-14] MEDS: CYANOCOBALAMIN (VITAMIN B-12) 1,000 MCG TABLET PO SCH (09:34)
[2019-04-14] MEDS: OMEGA-3 ACID ETHYL ESTERS 1 GM CAPSULE PO SCH (09:34)
[2019-04-14] MEDS: ENOXAPARIN SODIUM INJ 40 MG/0.4 ML DISP.SYRIN SUBCUT SCH (09:34)
[2019-04-14] MEDS: LISINOPRIL 10 MG TABLET PO SCH (09:34)
[2019-04-14] MEDS: MULTIVITAMIN TABLET PO SCH (09:34)
[2019-04-14] MEDS: FAMOTIDINE 20 MG TABLET PO SCH (09:35)
[2019-04-14] MEDS: NICOTINE 21 MG/24 HR PATCH.TD24 TD SCH (09:35)
[2019-04-14] MEDS: CEFTRIAXONE 2 GM/D5W RTU 2 GM/50 ML RTUPB IV SCH (09:35)
[2019-04-14] MEDS: METHYLPREDNISOLONE INJ 40 MG/1 ML SDV IV SCH (09:35)
[2019-04-14] MEDS: ASPIRIN 81 MG TABLET, ENT COATED PO SCH (09:35)
[2019-04-14] MEDS ORDERED: AZITHROMYCIN 500 MG in DEXTROSE 5%-WATER 250 ML IV SCH (10:00)
--- NOTE | 2019-04-14 11:01 | PDOC DISCHARGE SUMMARY ---
General - Admit/Disc Date/PCP Admission Date/Primary Care Provider: 04/12/19 16:45 Discharge Date: 04/14/19 - Discharge Diagnosis (1) Hypoxia Is this a current diagnosis for this admission?: Yes Summary: 04/12/2019-pt is going to be admitted in [facility]-to start on azithromycin and roce phin,oxygen 2lts via nasal canula,gi and DVT prophylaxis. order placed for CTA of the chest.blood cultures and sputum cultures requested.hypoxia most likely sec to asthma exacerbation. 04/14/[id number]-ygsm-old female admitted with acute on chronic respiratory failure with hypoxia most likely due to asthma exacerbation and underlying bronchitis which was resolved. Pulse ox today is 96% on room air. (2) Asthma exacerbation Is this a current diagnosis for this admission?: Yes Summary: 04/12/2019-pt has h/o asthma exacerbation... started on iv solumedrol 40 mg q 12hrs, oxygen 2lts ia nasal canula.started on xopenex neds q6h/prn 04/14/2019-patient was admitted with asthma exacerbations she was treated with IV Solu-Medrol placed on oxygen 2 L nasal cannula received Xopenex nebulizations she is going home on prednisone 10 mg p.o. daily for 7 days. Also given prescription for levo floxacillin 500 mg p.o. daily for 10 days. (3) Bronchitis Is this a current diagnosis for this admission?: Yes Summary: started on azthromycin and rocephin , sputum and blood cultures are requested 04/14/2019-patient came in with bronchitis started on azithromycin and Rocephin blood cultures are negative so far. Afebrile. Plan is to go home send her home on levo floxacillin 5 mg p.o. daily for 10 days. (4) Tobacco abuse Is this a current diagnosis for this admission?: No Summary: pt has h/o current day smoking.. smoking counselling provided for more than 10 min. order was placed for nicotine patch 04/14/2019-patient is a chronic smoker with smoking history of more than 30 years smoking counseling was provided again today for more than 10 minutes and patient was placed on nicotine patch. (5) HTN (hypertension) Is this a current diagnosis for this admission?: No (6) Elevated CPK Is this a current diagnosis for this admission?: Yes Summary: 04/14/2019-patient's bili levels went up to 601 yesterday she was started on IV fluids. Plan is to discontinue IV fluids from today patient is stable enough to go home today. - Additional Information Resuscitation Status: Full Code Discharge Activity: Activity As Tolerated Prescriptions: Albuterol Sulfate [Proair HFA Inhalation Aerosol 8.5 gm MDI] 2 puff IH Q4H PRN #1 mdi PRN Reason: Inhaler, Assist Devices [Space Chamber Plus] 1 each MC Q4 #1 spacer Levofloxacin [Levaquin 500 mg Tablet] 500 mg PO DAILY #10 tablet Prednisone 10 mg PO DAILY #7 tab.ds.pk Home Medications: Albuterol Sulfate [Proair HFA Inhalation Aerosol 8.5 gm MDI] 2 puff IH Q4H PRN #1 mdi 04/12/19 Aspirin [Adult Low Dose Aspirin EC] 81 mg PO DAILY 04/12/19 Cyanocobalamin (Vitamin B-12) [Vitamin B12] 2,500 mcg PO DAILY 04/12/19 Inhaler, Assist Devices [Space Chamber Plus] 1 each MC Q4 #1 spacer 04/12/19 Lisinopril [Prinivil 10 mg Tablet] 10 mg PO DAILY 04/12/19 Multivitamin [Daily Multiple Vitamin] 1 each PO DAILY 04/12/19 [place]-3 Fatty Acids/Fish Oil [Fish Oil 1,000 Mg Capsule] 1 each PO DAILY 04/12/19 Levofloxacin [Levaquin 500 mg Tablet] 500 mg PO DAILY #10 tablet 04/14/19 Prednisone 10 mg PO DAILY #7 tab.ds.pk 04/14/19 History of Present Illness History of Present Illness: SAM SANCHEZ is a 53 year old female asthma,copd,htn came to the er with c/o not feeling well for 2 weeks. from this morning started having chest pains,cough with yellowish sputum associated with fever,chills,nausea and decided to come to ER in the ER pulse ox is 80 percent and cxr neg for pneumonia and medical consult was called for admission Hospital Course Hospital Course: 53-year-old female with history of COPD, chronic smoking came to the emergency room with complaints of coughing fevers found to have a pulse ox of 80% in the emergency room. CT of the chest was done negative for PE but found to have a pulmonary emphysema. Patient does not need any home oxygen requirements. She is going home on levo floxacillin 20 mg p.o. daily for 10 days and prednisone 10 mg p.o. daily for 7 days. No complications during the hospital stay blood cultures are negative. Physical Exam Vital Signs: Temp Pulse Resp BP Pulse Ox 98.0 F 71 18 141/64 H 97 04/14/19 07:36 04/14/19 08:22 04/14/19 08:22 04/14/19 07:36 04/14/19 08:22 Intake & Output 04/13/19 04/14/19 04/15/19 06:59 06:59 06:59 Intake Total 750 3405 Output Total 0 Balance 750 3405 Weight 69.6 kg 70.6 kg General appearance: PRESENT: no acute distress, cooperative, well-developed Head exam: PRESENT: atraumatic Eye exam: PRESENT: PERRLA Ear exam: PRESENT: normal external ear exam Mouth exam: PRESENT: moist, tongue midline Teeth exam: PRESENT: poor dentation Neck exam: ABSENT: carotid bruit, JVD, lymphadenopathy, thyromegaly Respiratory exam: PRESENT: decreased breath sounds Cardiovascular exam: PRESENT: RRR. ABSENT: diastolic murmur, rubs, systolic murmur GI/Abdominal exam: PRESENT: normal bowel sounds, soft. ABSENT: distended, guarding, mass, organolmegaly, rebound, tenderness Rectal exam: PRESENT: deferred Neurological exam: PRESENT: alert, awake, oriented to person, oriented to place, oriented to time, oriented to situation, CN II-XII grossly intact. ABSENT: jm r sensory deficit Psychiatric exam: PRESENT: appropriate affect, normal mood. ABSENT: homicidal ideation, suicidal ideation Results Laboratory Results: 04/14/19 07:59 04/13/19 07:39 04/14/19 07:59 WBC 15.6 H RBC 4.82 Hgb 15.0 Hct 44.3 MCV 92 MCH 31.1 MCHC 33.9 RDW 12.6 Plt Count 238 Seg Neutrophils % 68.2 Lymphocytes % 25.0 Monocytes % 6.2 Eosinophils % 0.0 Basophils % 0.6 Absolute Neutrophils 10.7 H Absolute Lymphocytes 3.9 Absolute Monocytes 1.0 Absolute Eosinophils 0.0 Absolute Basophils 0.1 04/12/19 04/12/19 04/12/19 13:21 19:25 19:25 Creatine Kinase 300 H CK-MB (CK-2) 0.54 Troponin I < 0.012 < 0.012 04/13/19 04/13/19 04/13/19 01:18 01:18 07:39 Creatine Kinase 372 H 601 H CK-MB (CK-2) 1.05 Troponin I < 0.012 04/13/19 07:39 Creatine Kinase CK-MB (CK-2) 1.82 Troponin I < 0.012 Impressions: Chest/Abdomen CTA 04/12/19 00:00 IMPRESSION: There is no evidence of pulmonary emboli. There is no aortic aneurysm or dissection. There is mild centrilobular pulmonary emphysema. Chest X-Ray 04/12/19 13:15 IMPRESSION: Mildly increased interstitial markings -bronchial wall thickening. No consolidation or pleural effusion. Qualifiers - * PATIENT BEING DISCHARGED WITH ANY OF THE FOLLOWING DIAGNOSIS: No VTE patient discharged on overlapping Therapy?: No Acute Heart Failure - Is this a Heart Failure Patient?: No Plan Discharge Plan: Patient is going home today. Time Spent: Greater than 30 Minutes
[2019-04-14 12:00] VITALS: BP 107/54
== END 2019-04-14 14:00 | disposition home or self-care (01) | DRG 189 ==
LOC: ER 13:02 → EH 16:45 → 3S 19:55
PROVIDERS: ADMIT Internal Medicine; ATTEND Internal Medicine
DX: J96.21 Acute and chronic respiratory failure with hypoxia (principal); J45.901 Unspecified asthma with (acute) exacerbation; J44.9 Chronic obstructive pulmonary disease, unspecified; I10 Essential (primary) hypertension; F17.210 Nicotine dependence, cigarettes, uncomplicated; F12.10 Cannabis abuse, uncomplicated; I25.2 Old myocardial infarction
CPT/HCPCS: 36415; 71046; 71275; 80053; 80061; 82550; 82553; 82803; 83036; 83735; 84443; 84484; 85025; 87040; 93005; 93010; 94640; 96374; 99285; J0456; J0696; J1650; J2920; J2930; J3490; J7030; J7060; J7614; J7620

== ENCOUNTER → 2019-05-21 | Outpatient (CLI) | payer OTHER ==
[2019-05-21 10:35] LABS: ABSOLUTE EOSINOPHILS # (AUTO) 0.3 10^3/uL (0.0-0.6); ABSOLUTE LYMPHOCYTES (AUTO) 4.9 10^3/uL (0.5-4.7); ABSOLUTE MONOCYTES (AUTO) 0.9 10^3/uL (0.1-1.4); ABSOLUTE NEUT (AUTO) 6.7 10^3/uL (1.7-8.2); BASOPHILS % (AUTO) 0.4 % (0-2); EOSINOPHILS % (AUTO) 2.1 % (0-6); HEMATOCRIT 44.9 % (36.0-47.0); HEMOGLOBIN 15.2 g/dL (12.0-15.5); LYMPHOCYTES % (AUTO) 38.1 % (13-45); MEAN CORPUSCULAR HEMOGLOBIN 31.3 pg (27.0-33.4); MEAN CORPUSCULAR HGB CONC 33.9 g/dL (32.0-36.0); MEAN CORPUSCULAR VOLUME 93 fl (80-97); MONOCYTES % (AUTO) 7.4 % (3-13); PLATELET COUNT 245 10^3/uL (150-450); RED BLOOD COUNT 4.85 10^6/uL (3.72-5.28); RED CELL DISTRIBUTION WIDTH 13.1 % (11.5-14.0); TOTAL CELLS COUNTED % (AUTO) 100 %; WHITE BLOOD COUNT 12.8 10^3/uL (4.0-10.5)
[2019-05-24 21:36] LABS: M001-IGE PENICILLIUM CHRYSOGEN <0.10 kU/L (Class 0); M002-IGE CLADOSPORIUM HERBARUM <0.10 kU/L (Class 0); M003-IGE ASPERGILLUS FUMIGATUS <0.10 kU/L (Class 0); M004-IGE MUCOR RACEMOSUS <0.10 kU/L (Class 0); M005-IGE CANDIDA ALBICANS <0.10 kU/L (Class 0); M006-IGE ALTERNARIA ALTERNATA <0.10 kU/L (Class 0); M009-IGE FUSARIUM PROLIFERATUM <0.10 kU/L (Class 0); M012-IGE AUREOBASIDI PULLULANS <0.10 kU/L (Class 0); M013-IGE PHOMA BETAE <0.10 kU/L (Class 0); M014-IGE EPICOCCUM PURPURASCEN <0.10 kU/L (Class 0)
[2019-05-25 07:14] LABS: M010-IGE STEMPHYLIUM HERBARUM <0.10 kU/L (Class 0)
== END ==
LOC: CCC 09:34
DX: Z77.120 Contact with and (suspected) exposure to mold (toxic) (principal)
CPT/HCPCS: 36415; 85025; 86003

== ENCOUNTER → 2019-12-20 | Outpatient (CLI) | payer OTHER ==
[2019-12-20 09:31] LABS: ABSOLUTE EOSINOPHILS # (AUTO) 0.3 10^3/uL (0.0-0.6); ABSOLUTE LYMPHOCYTES (AUTO) 4.1 10^3/uL (0.5-4.7); ABSOLUTE MONOCYTES (AUTO) 0.8 10^3/uL (0.1-1.4); ABSOLUTE NEUT (AUTO) 6.2 10^3/uL (1.7-8.2); BASOPHILS % (AUTO) 0.4 % (0-2); EOSINOPHILS % (AUTO) 2.7 % (0-6); HEMATOCRIT 46.7 % (36.0-47.0); HEMOGLOBIN 16.5 g/dL (12.0-15.5); LYMPHOCYTES % (AUTO) 35.8 % (13-45); MEAN CORPUSCULAR HEMOGLOBIN 32.1 pg (27.0-33.4); MEAN CORPUSCULAR HGB CONC 35.3 g/dL (32.0-36.0); MEAN CORPUSCULAR VOLUME 91 fl (80-97); PLATELET COUNT 264 10^3/uL (150-450); RED BLOOD COUNT 5.14 10^6/uL (3.72-5.28); RED CELL DISTRIBUTION WIDTH 12.7 % (11.5-14.0); SEGMENTED NEUTROPHILS % (AUTO) 54.1 % (42-78); TOTAL CELLS COUNTED % (AUTO) 100 %; WHITE BLOOD COUNT 11.4 10^3/uL (4.0-10.5)
--- NOTE | 2019-12-20 09:45 | RADIOLOGY REPORT (SQ) ---
EXAM DESCRIPTION: CHEST PA/LATERAL COMPLETED DATE/TIME: 12/20/2019 8:48 am REASON FOR STUDY: CHR OBSTRUCTIVE PULMON DISEASE WITH (ACUTE) LOWER RESP INFCT COMPARISON: 04/12/2019. EXAM PARAMETERS: NUMBER OF VIEWS: two views TECHNIQUE: Digital Frontal and Lateral radiographic views of the chest acquired. RADIATION DOSE: NA LIMITATIONS: none FINDINGS: LUNGS AND PLEURA: Mild chronic interstitial changes. No opacities, masses or pneumothorax . No pleural effusion. MEDIASTINUM AND HILAR STRUCTURES: No masses or contour abnormalities. HEART AND VASCULAR STRUCTURES: Heart normal size. No evidence for failure. BONES: No acute findings. HARDWARE: None in the chest. OTHER: No other significant finding. IMPRESSION: NO ACUTE RADIOGRAPHIC FINDING IN THE CHEST. TECHNICAL DOCUMENTATION: JOB ID: [id number] 2010 [employer]- All Rights Reserved Reading location - IP/workstation name: [email or web address]
[2019-12-20 09:50] LABS: ALBUMIN 4.6 g/dL (3.5-5.0); ALKALINE PHOSPHATASE 96 U/L (38-126); ANION GAP 9 (5-19); ASPARTATE AMINO TRANSFERASE 28 U/L (14-36); BILIRUBIN,TOTAL 0.4 mg/dL (0.2-1.3); BLOOD UREA NITROGEN 18 mg/dL (7-20); CALCIUM 9.7 mg/dL (8.4-10.2); CARBON DIOXIDE 28 mmol/L (22-30); CHLORIDE 100 mmol/L (98-107); CHOLESTEROL 218.75 mg/dL (0-200); GLUCOSE 89 mg/dL (75-110); POTASSIUM 4.5 mmol/L (3.6-5.0); TOTAL PROTEIN 7.7 g/dL (6.3-8.2); TRIGLYCERIDES 230 mg/dL (<150); URIC ACID 6.5 mg/dL (2.5-7.5)
[2019-12-20 10:01] LABS: DIRECT LDL 158 mg/dL (<100)
--- NOTE | 2019-12-20 12:06 | EKG REPORT ---
SEVERITY:- NORMAL ECG - SINUS RHYTHM : Confirmed by: Ace Mckee MD 20-Dec-2019 12:06:25
== END ==
LOC: OD 08:19
DX: Z00.00 Encounter for general adult medical examination without abnormal findings (principal); I10 Essential (primary) hypertension; J44.0 Chronic obstructive pulmonary disease with (acute) lower respiratory infection
CPT/HCPCS: 36415; 71046; 80053; 80061; 83036; 84443; 84550; 85025; 93005; 93010